=== PATIENT | male | born 1990 | race Caucasian/White ===

== ENCOUNTER → 2019-08-26 10:27 | Outpatient (CLI) | payer OTHER, SELFPAY ==
[2019-08-26 09:51] VITALS: BMI 41.0
[2019-08-26 11:19] LABS: Hematocrit 41.7 % (40-54); Hemoglobin 13.9 g/dL (13.0-16.5)
[2019-08-26 12:30] LABS: AST(SGOT) 57 U/L (15-37); Alanine Aminotransfer ALT/SGPT 91 U/L (16-61); Albumin, Serum 3.8 g/dL (3.2-5.0); Alkaline Phosphatase 74 U/L (45-117); Anion Gap 5 (5-15); BUN 12 mg/dL (7-18); BUN/Creat Ratio 14.9 RATIO (10-20); Calcium,Total 8.7 mg/dL (8.5-10.1); Chloride 108 mmol/L (98-107); Cholesterol 199 mg/dL (200); Creatinine, Serum 0.81 mg/dL (0.70-1.30); EST Glomerular Filtration Rate 119 mL/min (>60); Est Glom Filt Rate - Afr Amer 144 mL/min (>60); Free T3 2.5 pg/mL (2.18-3.98); Globulin 3.7 g/dL (2.2-4.2); Glucose 100 mg/dL (74-106); High Density Lipoprotein 32 mg/dL; Potassium 3.7 mmol/L (3.5-5.1); Prolactin 64.2 ng/mL; Protein, Total 7.5 g/dL (6.4-8.2); Sodium Level 140 mmol/L (136-145); T4 Free Direct 0.92 ng/dL (0.76-1.46); Triglycerides 218 mg/dL; Very Low Density Lipoprotein 44 mg/dL (5-40)
[2019-08-29 16:07] LABS: Testosterone, % Free 2.01 % (1.50-4.20); Testosterone, Free 3.52 ng/dL (5.00-21.00)
[2019-08-29 17:03] LABS: Insulin Like Growth Factor 46 ng/mL (98-282); Testosterone, Total 175 ng/dL (264-916)
== END ==
PROVIDERS: Referring Provider Internal Medicine Endocrinology, Diabetes & Metabolism; Visit Provider Internal Medicine Endocrinology, Diabetes & Metabolism
DX: E89.3 Postprocedural hypopituitarism (principal); E23.7 Disorder of pituitary gland, unspecified
CPT/HCPCS: 36415; 80053; 80061; 84146; 84305; 84402; 84403; 84439; 84481; 85014; 85018

== ENCOUNTER → 2020-04-27 08:58 | Outpatient (CLI) | payer OTHER, SELFPAY ==
[2020-04-27 08:37] VITALS: BMI 41.0
[2020-04-27 12:36] LABS: Hemoglobin A1c 5.4 % (3.8-5.6)
[2020-04-27 14:36] LABS: ALB/GLOB Ratio 0.9 RATIO (0.9-2.4); AST(SGOT) 53 U/L (15-37); Alanine Aminotransfer ALT/SGPT 79 U/L (16-61); Albumin, Serum 3.7 g/dL (3.2-5.0); Alkaline Phosphatase 63 U/L (45-117); Anion Gap 6 (5-15); BUN 11 mg/dL (7-18); Calcium,Total 8.7 mg/dL (8.5-10.1); Chloride 106 mmol/L (98-107); Creatinine, Serum 0.84 mg/dL (0.70-1.30); EST Glomerular Filtration Rate 112 mL/min (>60); Est Glom Filt Rate - Afr Amer 136 mL/min (>60); Free T3 2.1 pg/mL (2.18-3.98); Glucose 88 mg/dL (74-106); Prolactin 66.7 ng/mL; Protein, Total 7.7 g/dL (6.4-8.2); Sodium Level 138 mmol/L (136-145)
[2020-04-30 16:08] LABS: Testosterone, % Free 1.33 % (1.50-4.20); Testosterone, Free 4.04 ng/dL (5.00-21.00)
[2020-04-30 16:28] LABS: Insulin Like Growth Factor 53 ng/mL (95-290); Testosterone, Total 304 ng/dL (264-916)
== END ==
PROVIDERS: Visit Provider Internal Medicine Endocrinology, Diabetes & Metabolism
DX: D35.2 Benign neoplasm of pituitary gland (principal); E23.0 Hypopituitarism; E03.8 Other specified hypothyroidism; R73.09 Other abnormal glucose
CPT/HCPCS: 36415; 80053; 82533; 83036; 84146; 84305; 84402; 84403; 84439; 84481

== ENCOUNTER → 2022-11-07 | Outpatient (CLI) | payer BC, SELFPAY ==
[2022-11-07 12:45] LABS: Absolute Lymphocyte Count 2.32 X10^3/uL (0.83-4.51); Absolute Neutrophil Count 3.3 X10^3/uL (2.0-7.7); Basophil# 0.05 X10^3/uL; Basophil% 0.8 % (0-1); Eosinophil# 0.11 X10^3/uL; Eosinophils% 1.8 % (0-5); Hematocrit 44.7 % (40-54); Hemoglobin 14.7 g/dL (13.0-16.5); Lymphocyte # 2.32 X10^3/ul (0.83-4.51); Lymphocyte % 37.4 % (19-41); Mean Corp Hgb Conc 32.9 g/dL (32-36); Mean Corpuscular Hgb 29.5 pg (27.0-32.0); Mean Corpuscular Volume 89.8 fL (80-94); Mean Platelet Vol. 12.4 fl (6.2-12.0); Monocyte# 0.42 X10^3/uL; Monocyte% 6.8 % (0-10); NRBC Flagged by Analyzer 0 % (0-5); Neutrophil # 3.27 X10^3/uL (2.7-7.7); Neutrophil % 52.6 % (47-70); Platelet Count 214 K/mm3 (150-450); RBC Distribution Width CV 12.5 % (11.6-14.6); RBC Distribution Width SD 40.8 fl (35.1-43.9); Red Blood Count 4.98 M/mm3 (4.6-6.2); White Blood Count 6.2 K/mm3 (4.4-11.0)
[2022-11-07 12:50] LABS: ALB/GLOB Ratio 0.9 RATIO (0.9-2.4); AST(SGOT) 46 U/L (15-37); Alanine Aminotransfer ALT/SGPT 75 U/L (16-61); Albumin, Serum 3.5 g/dL (3.2-5.0); Alkaline Phosphatase 87 U/L (45-117); Anion Gap 6 (5-15); BUN 7 mg/dL (7-18); BUN/Creat Ratio 9.9 RATIO (10-20); Calcium,Total 9.4 mg/dL (8.5-10.1); Chloride 106 mmol/L (98-107); Creatinine, Serum 0.71 mg/dL (0.70-1.30); EST Glomerular Filtration Rate 136 mL/min (>60); Est Glom Filt Rate - Afr Amer 164 mL/min (>60); Free T3 3.4 pg/mL (2.18-3.98); Globulin 3.8 g/dL (2.2-4.2); Glucose 108 mg/dL (74-106); Luteinizing Hormone 2.5 mIU/mL; Potassium 3.9 mmol/L (3.5-5.1); Prolactin 54.7 ng/mL; Protein, Total 7.3 g/dL (6.4-8.2); Sodium Level 138 mmol/L (136-145); T4 Free Direct 1.15 ng/dL (0.76-1.46)
[2022-11-10 12:09] LABS: Testosterone, % Free 1.07 % (1.50-4.20); Testosterone, Free 3.38 ng/dL (5.00-21.00)
[2022-11-10 17:21] LABS: Insulin Like Growth Factor 202 ng/mL (95-290); Testosterone, Total 316 ng/dL (264-916)
== END | disposition home or self-care (01) ==
LOC: BIMLAB 10:24
PROVIDERS: Referring Provider Internal Medicine Endocrinology, Diabetes & Metabolism; Visit Provider Internal Medicine Endocrinology, Diabetes & Metabolism
DX: D35.2 Benign neoplasm of pituitary gland (principal); E23.0 Hypopituitarism; E03.8 Other specified hypothyroidism; E29.1 Testicular hypofunction; K76.0 Fatty (change of) liver, not elsewhere classified
CPT/HCPCS: 36415; 80053; 82533; 83001; 83002; 84146; 84305; 84402; 84403; 84439; 84481; 85025

== ENCOUNTER → 2023-11-06 | Outpatient (CLI) | payer BC, SELFPAY ==
--- OUTSIDE RECORDS SUMMARY | 2023-11-06 09:57 | XMS RPT_ITS | CCD ---
Author Name Unknown Address [address] [place] [address] Organization [facility] Care Team Providers Care Cigarette Stamper Name Role Phone Matthew Weiss Unavailable Heriberto Chatterjee Primary Care Provider Azalea Gordon Unavailable HERIBERTO CHATTERJEE Primary Care Unavailable MATTHEW WEISS Referring Unavailable Matthew Weiss MD Unavailable Heriberto Chatterjee CNP Primary Care Provider Azalea Gordon MD Unavailable Matthew Weiss MD Unavailable Medications Completed/Discontinued Medications Medication Drug Class(es) Dates Sig (Normalized) Sig (Original) cabergoline 0.5 mg oral tablet (1 source) Ergot Derivative Start: 02-19-2019 cabergoline (DOSTINEX) 0.5 mg tablet TAKE 1 TABLET FIVE TIMES A WEEK 90 tablet 1 02/19/2019 Active Problems Active Problems Problem Classification Problem Date Documented Da te Episodic/Chronic Other endocrine disorders (2 sources) Deficiency of testosterone biosynthesis; 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 Other endocrine disorders (2 sources) Disorder of anterior pituitary; 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 Other nutritional; endocrine; and metabolic disorders (2 sources) Body mass index 40+ - severely obese; Translations: [Body mass index (BMI) 50.0-59.9, adult] Onset: 03-27-2017 03-27-2017 Chronic Thyroid disorders (2 sources) Secondary hypothyroidism; Translations: [Other specified hypothyroidism] 03-25-2016 Chronic Past or Other Problems Problem Classification Problem Date Documented Da te Episodic/Chronic Other and unspecified benign neoplasm (2 sources) Prolactinoma; 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] Onset: 11-07-2012 07-17-2019 Episodic Results Test Name Value Interpretation Reference Range Facil ity Encounters Encounter Date Encounter Type Care Provider Facility Start: 12-14-2022 End: 12-14-2022 ambulatory HERIBERTO DIETRICHWITH Facility:[facility] Start: 12-14-2022 End: 12-14-2022 Subsequent hospital visit by physician Mri [facility] 1 (I-Stat/1.5t) Work Phone: Radiology Start: 12-16-2004 End: 12-16-2004 Patient encounter procedure Roberth Nadia Lucia Work Phone: [facility] Start: 12-16-2004 Results Only Roberth Lucia Work Phone: [facility] Procedures Date Procedure Procedure Detail Performing Clinician Start: 12-14-2022 Mri brain brain stem w/o w/contrast material [facility] Provider Start: 12-16-2004 CONVERTED SURGICAL PATHOLOGY Roberth Nadia Lucia Work Phone: Plan of Treatment Date Care Activity Detail Author Start: 02-17-2029 Urine microalbumin profile [facility] Start: 05-05-2023 Influenza vaccination Influenza Vacc ine (#1) [facility] Start: 09-04-2022 Depression Assessment Depression Ass essment [facility] Start: 07-17-2020 ANNUAL PCP TEAM CONCRETE BLOCK MOLDER SILVANO DISEASE VISIT ANNUAL PCP TEAM CHRONIC DISEASE VISIT [facility] Start: 05-05-2020 Influenza vaccination INFLUENZA (#1) [facility] Start: 2006 HEPATITIS C SCREENING HEPATITIS C SC CHARLES [facility] Start: 2006 HIV SCREENING HIV SCREENING [facility] Start: 03-22-1989 Covid-19 Vaccine (#1) Covid-19 Vacci ne (#1) [facility] Start: 1988 Hepatitis B Vaccine (1 of 3 - 3-dose series) Hepatitis B Vaccine (1 of 3 - 3-dose series) [facility] Immunizations Immunization Date Immunization Notes Care Provider Fa nancyty 02-17-2019 tetanus toxoid, redu annemarie diphtheria toxoid, and acellular pertussis vaccine, adsorbed Mri (I-Stat/1.5t) Work Phone: [facility] Payers Date Payer Category Payer Unknown [id number] 2021 Unknown [employer] BLUE CARD PPO OOS [id number] 2021-Present [phone] [address] [place] [address] PPO [id number] Social History Date Type Detail Facility Tobacco smoking stat [facility] Unknown if ever smoked [facility] Start: 1988 Sex Assigned At Not on file [facility] Start: 01-11-2019 Tobacco smoking stat [facility] Never smoked tobacco [facility] Start: 01-11-2019 Tobacco use and exposure Smoke less tobacco non-user [facility] Start: 07-17-2019 Alcohol intake Current drinke r of alcohol (finding) [facility] Start: 07-17-2019 End: 08-12-2020 History of Social function [facility] Start: 07-17-2019 End: 08-12-2020 Tobacco use panel [facility] Adult Depression Scr eening Assessment 0 [facility] Start: 07-17-2019 Alcohol Comment Rarely [facility] Progress note 12-14-2022 Note Date & Type Note Facility 12-14-2022 Note HNO ID: [id number] Author: Shahbaz Riggins, waterproof bag cutting machine operator Service: Radiology Author Type: Lay Up Operator Type: Progress Notes Filed: 12/14/2022 11:26 AM Note Text: Radiology Service Progress Note PATIENT NAME: Patricio Marc DATE OF SERVICE: December 14, 2022 TIME: 11:26 AM PATIENT IDENTITY VERIFICATION COMPLETED USING TWO (2) IDENTIFIERS: Name and Date of confirmed by patient verbally. FALL SCREENING: Has the patient had 2 falls in the last year or 1 fall with injury or currently using an Ambulatory Assistive Device (Walker, Cane, Wheelchair, Crutches, etc.)? No PATIENT GENDER DATA: Male PATIENT RELEVANT IMPLANT DATA REVIEWED: Yes RADIOLOGY DEPARTMENT: MR; Exam(s) Completed: Head: Pituitary PERIPHERAL IV DATA: Site assessment: Clean,Dry and Intact, Site disposition Discontinued SIGNED BY: SUMEET Gavin December 14, 2022 11:26 AM [facility] Progress note 12-14-2022 Note Date & Type Note Facility 12-14-2022 Note HNO ID: [id number] Author: Sydni Cruz RN Service: ? Author Type: Registered Nurse Type: Progress Notes Filed: 12/14/2022 10:21 AM Note Text: Radiology Service Progress Note DATE OF SERVICE: December 14, 2022 TIME: 10:20 AM PATIENT WEIGHT: LBS PATIENT IDENTITY VERIFICATION COMPLETED USING TWO (2) STANDARD IDENTIFIERS: Name and Date of confirmed by patient verbally. FALL SCREENING: Has the patient had 2 falls in the last year or 1 fall with injury or currently using an Ambulatory Assistive Device (Walker, Cane, Wheelchair, Crutches, etc.)? No PATIENT GENDER DATA: Male ALLERGIES: Reviewed and unchanged CONTRAST ALLERGY: No EXAM: MRI - CONTRAST TYPE: GROUP II IV SITE: Ambulatory: A peripheral IV was started in the Left antecubital site with a Angio cath: 22 gauge. and A Saline lock was inserted per protocol IV SITE APPEARANCE: Clean,Dry and Intact SIGNATURE: Sydni Cruz RN PATIENT NAME: Patricio Marc DATE: December 14, 2022 TIME: 10:20 AM [facility] History of Present illness Narrative 12-14-2022 Sydni Cruz RN - 12/14/2022 10:00 AM EDTMShahbaz veliz MRI Tech - 12/14/2022 10:00 AM EDT Note Date & Type Note Facility 12-14-2022 History of Presen t illness Narrative Radiology Service Progress Note DATE OF SERVICE: December 14, 2022 TIME: 10:20 AM PATIENT WEIGHT: LBS PATIENT IDENTITY VERIFICATION COMPLETED USING TWO (2) STANDARD IDENTIFIERS: Name and Date of confirmed by patient verbally. FALL SCREENING: Has the patient had 2 falls in the last year or 1 fall with injury or currently using an Ambulatory Assistive Device (Walker, Cane, Wheelchair, Crutches, etc.)? No PATIENT GENDER DATA: Male ALLERGIES: Reviewed and unchanged CONTRAST ALLERGY: No EXAM: MRI - CONTRAST TYPE: GROUP II IV SITE: Ambulatory: A peripheral IV was started in the Left antecubital site with a Angio cath: 22 gauge. and A Saline lock was inserted per protocol IV SITE APPEARANCE: Clean,Dry and Intact SIGNATURE: Sydni Cruz RN PATIENT NAME: Patriico Marc DATE: December 14, 2022 TIME: 10:20 AM Radiology Service Progress Note PATIENT NAME: Patricio Marc DATE OF SERVICE: December 14, 2022 TIME: 11:26 AM PATIENT IDENTITY VERIFICATION COMPLETED USING TWO (2) IDENTIFIERS: Name and Date of confirmed by patient verbally. FALL SCREENING: Has the patient had 2 falls in the last year or 1 fall with injury or currently using an Ambulatory Assistive Device (Walker, Cane, Wheelchair, Crutches, etc.)? No PATIENT GENDER DATA: Male PATIENT RELEVANT IMPLANT DATA REVIEWED: Yes RADIOLOGY DEPARTMENT: MR; Exam(s) Completed: Head: Pituitary PERIPHERAL IV DATA: Site assessment: Clean,Dry and Intact, Site disposition Discontinued SIGNED BY: Shahbaz Riggins waterproof bag cutting machine operator December 14, 2022 11:26 AM documented in this encounter [facility] Summary Purpose Family History No Family History Records FoundNo Family History Records FoundNo Family History Records Found Advance Directives No Advanced Directives Records FoundNo Advanced Directives Records FoundNo Advanced Directives Records Found Additional Source Comments (unrecognized sect ion and content) No Status Records FoundNo Status Records FoundNo Status Records Found INFORMATION SOURCE (unrecogn ized section and content) DATE CREATED AUTHOR AUTHOR'S ORGANIZ ATION 10/15/2019 [facility] DATE CREATED AUTHOR AUTHOR'S ORGANIZ ATION 12/18/2022 [facility] Source Comments (unrecognize d section and content) In the event this informatio n is protected by the Federal Confidentiality of Alcohol and Drug Abuse Patient Records regulations: The Federal rules restrict any use of the information to criminally investigate or prosecute any alcohol or drug abuse patient.[facility] the event this information is protected by the Federal Confidentiality of Alcohol and Drug Abuse Patient Records regulations: The Federal rules restrict any use of the information to criminally investigate or prosecute any alcohol or drug abuse patient.[facility] Reason for Visit (unrecogniz ed section and content) Specialty Diagnoses / Procedures Referred By Contac t Referred To Contact Radiology / RADIO [facility] Diagnoses Benign neoplasm of pituitary gland Brain W/WO contrast for benign neoplasm of pituitary gland. Procedures MRI BRAIN BRAIN STEM W/O W/CONTRAST MATERIAL MRI WWO NEU1 B 400 Matthew Weiss MD [address] [facility] [address] [place] [address] Radio Mri [facility] [address] [place] [address] Referral ID Status Reason Start Date Expiration Date Visits Re quested Visits Authorized [id number] Closed 11/15/2022 01/13/2023 1 1 Care Teams (unrecognized sec tion and content) FOR RECORDS PERTAINING TO PATIENTS WHO ARE OR HAVE BEEN ENROLLED IN A CHEMICAL DEPENDENCY/SUBSTANCEABUSE PROGRAM, SOME INFORMATION MAY BE OMITTED. This clinical summary was aggregated from multiple sources. Caution should be exercised in using it in the provision of clinical care. This summary normalizes information from multiple sources, and as a consequence, information in this document may materially change the coding, format and clinical context of patient data. In addition, data may be omitted in some cases. CLINICAL DECISIONS SHOULD BE BASED ON THE PRIMARY CLINICAL RECORDS. [facility]. provides no warranty or guarantee of the accuracy or completeness of information in this document.
[2023-11-06 12:50] LABS: Absolute Lymphocyte Count 2.51 X10^3/uL (0.83-4.51); Basophil# 0.06 X10^3/uL; Basophil% 0.9 % (0-1); Eosinophil# 0.27 X10^3/uL; Eosinophils% 4.3 % (0-5); Hematocrit 44.1 % (40-54); Hemoglobin 14.2 g/dL (13.0-16.5); Lymphocyte # 2.51 X10^3/ul (0.83-4.51); Lymphocyte % 39.7 % (19-41); Mean Corp Hgb Conc 32.2 g/dL (32-36); Mean Corpuscular Hgb 29.6 pg (27.0-32.0); Mean Corpuscular Volume 92.1 fL (80-94); Mean Platelet Vol. 12.9 fl (6.2-12.0); Monocyte# 0.47 X10^3/uL; Monocyte% 7.4 % (0-10); NRBC Flagged by Analyzer 0 % (0-5); Neutrophil # 2.98 X10^3/uL (2.7-7.7); Neutrophil % 47.2 % (47-70); Platelet Count 188 K/mm3 (150-450); RBC Distribution Width CV 12.3 % (11.6-14.6); RBC Distribution Width SD 41.5 fl (35.1-43.9); Red Blood Count 4.79 M/mm3 (4.6-6.2); White Blood Count 6.3 K/mm3 (4.4-11.0)
[2023-11-06 14:44] LABS: ALB/GLOB Ratio 1.1 RATIO (0.9-2.4); AST(SGOT) 61 U/L (15-37); Alanine Aminotransfer ALT/SGPT 88 U/L (16-61); Albumin, Serum 3.9 g/dL (3.2-5.0); Alkaline Phosphatase 104 U/L (45-117); Anion Gap 4 (5-15); BUN 11 mg/dL (7-18); BUN/Creat Ratio 13.2 RATIO (10-20); Calcium,Total 9.6 mg/dL (8.5-10.1); Chloride 109 mmol/L (98-107); Cholesterol 199 mg/dL (200); Creatinine, Serum 0.83 mg/dL (0.70-1.30); EST Glomerular Filtration Rate 111 mL/min (>60); Est Glom Filt Rate - Afr Amer 135 mL/min (>60); Globulin 3.5 g/dL (2.2-4.2); Glucose 94 mg/dL (74-106); High Density Lipoprotein 41 mg/dL; Potassium 4.1 mmol/L (3.5-5.1); Protein, Total 7.4 g/dL (6.4-8.2); Sodium Level 142 mmol/L (136-145); T4 Free Direct 0.99 ng/dL (0.76-1.46); Triglycerides 153 mg/dL; Very Low Density Lipoprotein 31 mg/dL (5-40)
[2023-11-11 17:07] LABS: Insulin Like Growth Factor 179 ng/mL (95-290); Testosterone, % Free 2.69 % (1.50-4.20); Testosterone, Free 10.22 ng/dL (5.00-21.00); Testosterone, Total 380 ng/dL (264-916)
== END | disposition home or self-care (01) ==
LOC: BIMLAB 09:23
PROVIDERS: Referring Provider Internal Medicine Endocrinology, Diabetes & Metabolism; Visit Provider Internal Medicine Endocrinology, Diabetes & Metabolism
DX: E11.9 Type 2 diabetes mellitus without complications (principal); E23.0 Hypopituitarism; D35.2 Benign neoplasm of pituitary gland; E03.8 Other specified hypothyroidism; K76.0 Fatty (change of) liver, not elsewhere classified
CPT/HCPCS: 36415; 80053; 80061; 82533; 84146; 84305; 84402; 84403; 84439; 84481; 85025